=== PATIENT | female | born 1980 | race Caucasian/White ===

== ENCOUNTER 2017-06-24 10:01 | Emergency (ER) | payer BC ==
--- NOTE | 2017-06-24 10:20 | ED Physician Documentation ---
Lower Extremity Injury - HISTORIAN Historian: patient - HPI Chief Complaint: Lower Extremity Injury Additional Information: insect bite-sting yest am-pt saw insect fly away but was unable to identify-now sl swollen and red-itches and hurts mildly. concerned if will spread Onset: days ago (1) Where: home Severity: mild Associated Symptoms:: denies: numbness distally, unable to bear weight - ROS CONST: no problems CVS/RESP: none MS/SKIN/LYMPH: none NEURO: denies: headache, head injury - PAST HX Past History: none - SOCIAL HX Smoking History: non-smoker Alcohol Use: none Drug Use: none - FAMILY HX Family History: no significant history - REVIEWED ASSESSMENTS Nursing Assessment Reviewed: Yes Vitals Reviewed: Yes Lower Extremities Injury Phy - Physical Exam General Appearance: mild distress Foot: N/A: non-tender (foot dorsum insect bite) Gait: normal Neuro/Vascular/Tendon: no vascular compromise, motor nml, sensation nml, abnml color (redness very min swelling) Head/ENT: nml inspection Neck/Back: nml inspection Resp/CVS: chest non-tender, breath sounds nml, heart sounds nml, no resp. distress, lungs clear, reg. rate & rhythm Abdomen: non-tender Discharge Clincal Impression: insect sting dorsum rt foot Referrals: Ryan Garduno MD [Primary Care Provider] - 2 Days Comments: angela Condition: Good Disposition: 01 HOME, SELF-CARE Decision to Admit: NO Decision Time: 10:25
[2017-06-24 10:35] VITALS: BP 161/105
== END 2017-06-24 10:38 | disposition home or self-care (01) ==
LOC: ED 10:01
DX: T63.481A Toxic effect of venom of other arthropod, accidental (unintentional), initial encounter (principal); X58.XXXA Exposure to other specified factors, initial encounter; Y93.9 Activity, unspecified; Y99.9 Unspecified external cause status
CPT/HCPCS: 99283

== ENCOUNTER 2018-08-01 07:50 | Emergency (ER) | payer BC ==
--- NOTE | 2018-08-01 08:09 | ED Physician Documentation ---
General Adult - HISTORIAN Historian: patient - HPI Stated Complaint: foot/ankle pain right Chief Complaint: Ankle Injury Onset: hours (1) Timing: still present Severity: mild Further Comments: yes (She states she was taking out the trash and she slipped on the curb/with mud and hurt her foot and ankle. She has not tried any OTC meds . She has increased pain with pressure. She has pain along the lateral ankle foot and great toe - she does have a small abrasion on the right great toe) Last known Well Code/Unknown Code: Unknown - ROS CONST: no problems - PAST HX Past History: none Surgeries/Procedures: hysterectomy Immunizations: UTD Allergies/Adverse Reactions: Allergies Allergy/AdvReac Type Severity Reaction Status Date / Time Penicillins Allergy Verified 08/01/18 08:12 Home Medications: Ambulatory Orders Medication Instructions Recorded NK 08/01/18 - SOCIAL HX Smoking History: non-smoker Alcohol Use: none Drug Use: none - FAMILY HX Family History: No - VITAL SIGNS Vital Signs: Vital Signs Temp Pulse Resp BP Pulse Ox 161/105 06/24/17 10:01 - REVIEWED ASSESSMENTS Nursing Assessment Reviewed: Yes Vitals Reviewed: Yes Progress - Progress Progress: 0915: discussed results and plan. She is agreeable. She reports pain is improved after med DG ED Results Lab/Radiology - Radiology Radiology Impressions: Examination: Plain film right foot History: RT FOOT, PAIN IN RT FOOT AND 1ST DIGIT AFTER FALL TODAY (Hx) Findings: 3 views of the right foot demonstrates articular degenerative s purring. No fracture or dislocation. Inferior calcaneal spur. No soft tissue swelling. No joint effusion. Impression: Degenerative spurring. No acute cortical abnormality. Electronically signed on Aug 01, 2018 8:54:09 AM CDT by: Kyaw White Examination: Plain film right ankle History: RT ANKLE, PAIN IN LATERAL RT ANKLE AFTER FALL TODAY (Hx) Findings: 3 views of the right ankle demonstrates normal cortical margins. No fracture or dislocation. Talar dome is intact. Calcaneal spur. No soft tissue swelling. No joint effusion. Impression: Calcaneal spur. No acute cortical abnormality. Electronically signed on Aug 01, 2018 8:55:12 AM CDT by: Kyaw White General Adult Physical Exam - PHYSICAL EXAM GENERAL APPEARANCE: no distress EENT: eye inspection normal NECK: normal inspection RESPIRATORY: no resp distress, chest non-tender, breath sounds normal CVS: reg rate & rhythm, heart sounds normal, equal pulses ABDOMEN: soft, normal bowel sounds, no distension BACK: normal inspection SKIN: warm/dry, other (small abrasion on right lateral great toe ) EXTREMITIES: other (pain with flexion and weight bearing. Pain on right lateral ankle with palpation . Pulses + sensation + FROM . cap refill + no obvious injurty or deformity. ) NEURO: oriented X3 Discharge Clincal Impression: Ankle pain, right Qualifiers: Chronicity: acute Qualified Code(s): M25.571 - Pain in right ankle and joints of right foot Referrals: Primary Doctor,No [Primary Care Provider] - 2 Days Additional Instructions: 1. Air splint on ankle for support 2. Elevate and ice 3. Ibuprofen as directed on bottle for pain 4. Follow up with PCP In 2-4 days if no improvement 5. Return to ER for any concerns Condition: Stable Disposition: 01 HOME, SELF-CARE Decision to Admit: NO Date of Decison to Admit: 08/01/18 Decision Time: 09:19
[2018-08-01] MEDS: KETOROLAC TROMETHAMINE 60 MG/2 ML VIAL IM ONE (08:45)
[2018-08-01] MEDS: DIPH,PERTUSS(ACELL),TET VAC/PF 0.5 ML DISP.SYRIN IM ONE (09:20)
[2018-08-01 10:16] VITALS: BP 136/88
--- NOTE | 2018-08-01 17:52 | Diagnostic Imaging Report ---
SANDRA LANGLEY [facility] [address] [facility].[address] [id number] Report Submission Date: Aug 01, 2018 8:54:09 AM CDT Patient Study Name: SHEELA AVELAR Date: Aug 01, 2018 8:22:21 AM CDT Modality Type: DX Gender: F Description: LOWER EXTREMITY : 76 Institution: [facility] Physician: SANDRA LANGLEY Examination: Plain film right foot History: RT FOOT, PAIN IN RT FOOT AND 1ST DIGIT AFTER FALL TODAY (Hx) Findings: 3 views of the right foot demonstrates articular degenerative spurring. No fracture or dislocation. Inferior calcaneal spur. No soft tissue swelling. No joint effusion. Impression: Degenerative spurring. No acute cortical abnormality. Electronically signed on Aug 01, 2018 8:54:09 AM CDT by: Kyaw AYOUB
--- NOTE | 2018-08-01 17:52 | Diagnostic Imaging Report ---
SANDRA LANGLEY [facility] [address] [facility].[address] [id number] Report Submission Date: Aug 01, 2018 8:55:12 AM CDT Patient Study Name: SHEELA AVELAR Date: Aug 01, 2018 8:28:54 AM CDT Modality Type: DX Gender: F Description: LOWER EXTREMITY : 76 Institution: [facility] Physician: SANDRA LANGLEY Examination: Plain film right ankle History: RT ANKLE, PAIN IN LATERAL RT ANKLE AFTER FALL TODAY (Hx) Findings: 3 views of the right ankle demonstrates normal cortical margins. No fracture or dislocation. Talar dome is intact. Calcaneal spur. No soft tissue swelling. No joint effusion. Impression: Calcaneal spur. No acute cortical abnormality. Electronically signed on Aug 01, 2018 8:55:12 AM CDT by: Kyaw AYOUB
== END 2018-08-01 09:25 | disposition home or self-care (01) ==
LOC: ED 07:50
DX: M25.571 Pain in right ankle and joints of right foot (principal); S90.411A Abrasion, right great toe, initial encounter; W22.8XXA Striking against or struck by other objects, initial encounter; Y92.019 Unspecified place in single-family (private) house as the place of occurrence of the external cause; Y93.9 Activity, unspecified; Y99.9 Unspecified external cause status
CPT/HCPCS: 73610; 73630; 90715; J1885; 90471; 96372